=== PATIENT | female | born 1990 ===

== ENCOUNTER 2016-07-20 18:02 | Emergency (ER) | payer OTHER ==
[2016-07-20 18:16] VITALS: RESP 20
[2016-07-20] MEDS ORDERED: Sodium Chloride 0.9% 1,000 ML IV ONE (19:20)
--- NOTE | 2016-07-20 19:20 | C.PDOC ---
History Of Present Illness 26 y/o female , 12 weeks presents to the ED with complains of sudden onset vaginal bleeding and abdominal cramping for the past couple hours. Denies fever, chills, nausea, vomiting or any other complaints. Time Seen by Provider: 07/20/16 19:19 Chief Complaint (Nursing): Female Genitourinary History Per: Patient History/Exam Limitations: no limitations Onset/Duration Of Symptoms: Hrs, Waxing/Waning Severity: Moderate Quality Of Discomfort: Cramping Associated Symptoms: denies: Fever, Chills, Nausea, Vomiting Alleviating Factors: None Recent travel outside of the [place]: No Abnormal Vaginal Bleeding: Yes Past Medical History Reviewed: Historical Data, Nursing Documentation, Vital Signs Vital Signs: Last Vital Signs Temp 98.8 F 07/20/16 18:14 Pulse 100 H 07/20/16 18:14 Resp 20 07/20/16 18:14 BP 113/75 07/20/16 18:14 Pulse Ox 99 07/20/16 20:49 Family History: States: Unknown Family Hx - Social History Hx Alcohol Use: No Hx Substance Use: No - Immunization History Hx Tetanus Toxoid Vaccination: No Hx Influenza Vaccination: No Hx Pneumococcal Vaccination: No Review Of Systems Constitutional: Negative for: Fever, Chills Gastrointestinal: Positive for: Abdominal Pain. Negative for: Nausea, Vomiting Genitourinary: Positive for: Vaginal Bleeding Physical Exam - Physical Exam Appears: Non-toxic, No Acute Distress Skin: Warm, Dry, No Rash Head: Atraumatic, Normacephalic Chest: Symmetrical Cardiovascular: Rhythm Regular, No Murmur Respiratory: No Rales, No Rhonchi, No Wheezing Gastrointestinal/Abdominal: Soft, Tenderness (mild suprapubic), No Guarding, No Rebound Extremity: Bilateral: Atraumatic Neurological/Psych: Oriented x3, Normal Speech ED Course And Treatment - Laboratory Results Result Diagrams: 07/20/16 19:30 07/20/16 19:30 O2 Sat by Pulse Oximetry: 99 (room air) Pulse Ox Interpretation: Normal - CT Scan/US US Other Rad Studies (CT/US): Read By Radiologist, Radiology Report Reviewed CT/US Interpretation: EXAM: US First Trimester, Transabdominal. CLINICAL HISTORY: 26 years old, female; Signs and symptoms; Lmp or gestational age (in weeks): 05/12; Other: Vaginal. bleeding; ; Additional info: Vag bleed 12 weeks preg. TECHNIQUE: Real-time transabdominal obstetrical ultrasound of the maternal pelvis and a first trimester. with image documentation. EXAM DATE/TIME: Exam ordered 07/20/2016 7:20 PM. COMPARISON: No relevant prior studies available. FINDINGS: Gestation: There is a single intrauterine gestational sac. There is a pole with a crown-rump. length measurement of 3.99 cm for menstrual age of 10 weeks and 6 days. Cardiac activity is noted. at a rate of 157 beats per minute. A yolk sac is present. Placenta/amniotic fluid: A subchorionic fluid collection is noted posteriorly measuring 3.3 x 0.8 x 4.4. cm. Uterus/cervix: The uterus measures 11.9 x 8.1 x 8.5 cm. The cervix measures 3.2 cm in length. No. myometrial mass. Ovaries: The right ovary measures 3.5 x 1.4 x 2.8 cm containing several subcentimeter follicles. Blood flow is demonstrated within the right ovary on color Doppler examination. The left ovary. measures 3 x 1.8 x 2.9 cm. Subcentimeter follicles are seen in the left ovary. Blood flow is. demonstrated within the left are occult upper examination. No mass. Free fluid: No free fluid. IMPRESSION: 1. Single live intrauterine with an estimated menstrual age of 10 weeks and 6 days plus or. minus one week. 2. Small subchorionic hemorrhage as described above. Thank you for allowing us to participate in the care of your patient. Dictated and Authenticated by: Palmira Sharp MD. 07/20/2016 8:40 PM Eastern Time ([place] & [place]) Progress Note: Plan: labs, US preg, IV fluids Reevaluation Time: 20:49 Reassessment Condition: Improved Disposition Counseled Patient/Family Regarding: Studies Performed, Diagnosis, Need For Followup, Rx Given - Disposition Referrals: Edwin Aguilar MD [Staff Provider] - Disposition: HOME/ ROUTINE Disposition Time: 19:20 Condition: FAIR Prescriptions: Nitrofurantoin Macrocrystals [Macrobid] 1 cap PO BID #14 cap Instructions: Threatened Miscarriage (ED), Urinary Tract Infection in (ED), Subchorionic Hemorrhage (ED) - Clinical Impression Clinical Impression: Threatened , UTI (urinary tract infection) during , Subchorionic hematoma - Scribe Statement The provider has reviewed the documentation as recorded by the Scribe Goreg Avery Provider Attestation: All medical record entries made by the Scribe were at my direction and personally dictated by me. I have reviewed the chart and agree that the record accurately reflects my personal performance of the history, physical exam, medical decision making, and the department course for this patient. I have also personally directed, reviewed, and agree with the discharge instructions and disposition.
[2016-07-20] MEDS ORDERED: Sodium Chloride 0.9% 1,000 ML ONE (19:29)
[2016-07-20 19:36] LABS: BASO % 0.4 % (0.0-2.0); EOS # 0.1 K/uL (0.0-0.7); EOS % 0.9 % (0.0-4.0); HEMATOCRIT 36.2 % (34.0-47.0); LYMPH # 1.7 K/uL (1.0-4.3); LYMPH % 16.4 % (20.0-40.0); MEAN CELL VOLUME 88.5 fL (81.0-99.0); MEAN CORPUSCULAR HEMOGLOBIN 30.2 pg (27.0-31.0); MEAN CORPUSCULAR HGB CONC 34.1 g/dL (33.0-37.0); MEAN PLATELET VOLUME 9.4 fL (7.2-11.7); MONO # 0.9 K/uL (0.0-0.8); MONO % 8.6 % (0.0-10.0); RED CELL DISTRIBUTION WIDTH 13.2 % (11.5-14.5); WHITE BLOOD COUNT 10.6 K/uL (4.8-10.8)
[2016-07-20 19:48] LABS: CHLORIDE 97 mmol/L (98-107); POTASSIUM 3.9 mmol/L (3.6-5.2); SODIUM 133 mmol/L (132-148)
[2016-07-20 19:51] LABS: ALB/GLOB RATIO 1.2 (1.0-2.1); ALKALINE PHOSPHATASE 55 U/L (38-126); ALT/SGPT 38 U/L (9-52); AST/SGOT 27 U/L (14-36); BILIRUBIN,TOTAL 0.5 mg/dL (0.2-1.3); BLOOD UREA NITROGEN 10 mg/dL (7-17); CALCIUM 8.8 mg/dl (8.6-10.4); CARBON DIOXIDE 25 mmol/L (22-30); GFR AFRICAN-AMERICAN > 60; GLUCOSE,RANDOM 89 mg/dL (65-105); TOTAL PROTEIN 7.3 g/dL (6.3-8.3)
[2016-07-20 20:19] LABS: RBC URINE 23346 /hpf (0-3); URINE BACTERIA MOD (<OCC); URINE BILIRUBIN NEGATIVE (NEGATIVE); URINE BLOOD 3+ (NEGATIVE); URINE COLOR Amber (YELLOW); URINE GLUCOSE (UA) 1+ mg/dL (Normal); URINE KETONE TRACE mg/dL (NEGATIVE); URINE PROTEIN 2+ mg/dL (NEGATIVE); URINE UROBILINOGEN NORMAL mg/dL (0.2-1.0); WBC CLUMPS MANY /hpf; WBC URINE 221 /hpf (0-5)
[2016-07-20 20:20] LABS: URINE LEUKOCYTE ESTERASE 2+ Leu/uL (Negative)
--- NOTE | 2016-07-20 20:40 | US ---
EXAM: US First Trimester, Transabdominal CLINICAL HISTORY: 26 years old, female; Signs and symptoms; Lmp or gestational age (in weeks): 05/12; Other: Vaginal bleeding; ; Additional info: Vag bleed 12 weeks preg TECHNIQUE: Real-time transabdominal obstetrical ultrasound of the maternal pelvis and a first trimester with image documentation. EXAM DATE/TIME: Exam ordered 07/20/2016 7:20 PM COMPARISON: No relevant prior studies available. FINDINGS: Gestation: There is a single intrauterine gestational sac. There is a pole with a crown-rump length measurement of 3.99 cm for menstrual age of 10 weeks and 6 days. Cardiac activity is noted at a rate of 157 beats per minute. A yolk sac is present. Placenta/amniotic fluid: A subchorionic fluid collection is noted posteriorly measuring 3.3 x 0.8 x 4.4 cm. Uterus/cervix: The uterus measures 11.9 x 8.1 x 8.5 cm. The cervix measures 3.2 cm in length. No myometrial mass. Ovaries: The right ovary measures 3.5 x 1.4 x 2.8 cm containing several subcentimeter follicles. Blood flow is demonstrated within the right ovary on color Doppler examination. The left ovary measures 3 x 1.8 x 2.9 cm. Subcentimeter follicles are seen in the left ovary. Blood flow is demonstrated within the left are occult upper examination. No mass. Free fluid: No free fluid. IMPRESSION: 1. Single live intrauterine with an estimated menstrual age of 10 weeks and 6 days plus or minus one week. 2. Small subchorionic hemorrhage as described above
[2016-07-20 21:12] VITALS: BP 119/77; PULSE 96; TEMP 98.3; O2SAT 100
== END 2016-07-20 21:34 | disposition home or self-care (01) ==
LOC: C.ER 18:02
DX: O20.0 Threatened abortion (principal); O23.41 Unspecified infection of urinary tract in pregnancy, first trimester; Z3A.10 10 weeks gestation of pregnancy
CPT/HCPCS: 76801; 80053; 81001; 84702; 84703; 85025; 86850; 86900; 96360; 99285; J7040